=== PATIENT | male | born 1945 | race Caucasian/White ===

== ENCOUNTER 2025-05-27 17:08 | Emergency (ER) | payer OTHER ==
[2025-05-27 17:23] VITALS: BP 180/75; PULSE 70; TEMP 97.2; O2SAT 96
[2025-05-27] MEDS ORDERED: XYLOCAINE VISCOUS 2% 15 ML CUP ONE (17:24)
[2025-05-27] MEDS ORDERED: XYLOCAINE 1% HCL 20 ML MDV ONE (17:30)
--- NOTE | 2025-05-27 17:57 | ERPHSYRPT ---
- History of Present Illness Time Seen by Provider: 05/27/25 17:12 Source: patient Exam Limitations: no limitations Patient Subjective Stated Complaint: pt got bit by his grandsons dog on the lip when it thought that she was going to take her food from her Triage Nursing Assessment: Pt brought to the ER by his , vitals wnl, rates pain as 8/10, pulses normal, skin n/w/d, bit through the lip and ripped skin under the nose, denies any other injuries Physician History: 79-year-old male presents to the emergency room after being bit by his grand child's dog denies any other injury dog does have his rabies shot patient reports his tetanus shot is up-to-date patient now in ED for further eval Timing/Duration: today Severity: mild Associated Symptoms: denies symptoms Allergies/Adverse Reactions: No Known Drug Allergies Allergy (Verified 05/27/25 17:23) Home Medications: Bisoprolol Fumarate/Hctz [Bisoprolol-Hctz 5-6.25 mg Tab] 6.25 mg PO HS 07/11/13 [History] Gabapentin [Neurontin] 600 mg PO TID 07/11/13 [History] Glucosamine Sulfate Dipot Chlr [Glucosamine] 1,000 mg PO BID 07/11/13 [History] Omeprazole 20 MG [Prilosec 20 mg] 20 mg PO HS 07/11/13 [History] Tamsulosin HCl 0.4 mg [Flomax 0.4 MG] 0.4 mg PO HS 07/11/13 [History] lisinopriL [Lisinopril] 40 mg PO HS 07/11/13 [History] Hydrocodone/Acetaminophen [Hydrocodon-Acetaminophn 10-325] 1 each PO Q4HPRN PRN 07/10/14 [History] Hx Influenza Vaccination/Date Given: No Hx Pneumococcal Vaccination/Date Given: No Travel Risk - International Travel Have you traveled outside of the country in past 3 weeks: No - Emerging Infectious Disease Are you exhibiting symptoms associated with any current EIDs: No - Review of Systems Constitutional: No Fever, No Chills Eyes: No Symptoms Ears, Nose, & Throat: No Symptoms Respiratory: No Cough, No Dyspnea Cardiac: No Chest Pain, No Edema, No Syncope Abdominal/Gastrointestinal: No Abdominal Pain, No Nausea, No Vomiting, No Diarrhea Genitourinary Symptoms: No Dysuria Musculoskeletal: No Back Pain, No Neck Pain Skin: No Rash Neurological: No Dizziness, No Focal Weakness, No Sensory Changes Psychological: No Symptoms Endocrine: No Symptoms All Other Systems: Reviewed and Negative - Past Medical History Pertinent Past Medical History: Yes Neurological History: No Pertinent History ENT History: No Pertinent History Cardiac History: Hypertension Respiratory History: Pneumonia Endocrine Medical History: No Pertinent History Musculoskeletal History: No Pertinent History GI Medical History: No Pertinent History History: No Pertinent History Psycho-Social History: No Pertinent History Male Reproductive Disorders: Prostate Problems - Past Surgical History Past Surgical History: Yes Neuro Surgical History: No Pertinent History Cardiac: No Pertinent History Respiratory: No Pertinent History Gastrointestinal: Cholecystectomy Genitourinary: No Pertinent History Musculoskeletal: Other Male Surgical History: No Pertinent History Other Surgical History: BACK SURGERIES - Social History Smoking Status: Current some day smoker How long have you smoked: cigars Exposure to second hand smoke: Yes Drug Use: none - Social Determinants of Health Will the patient participate in the screening: Yes Do you worry about a steady place to live?: No Do you have any problems with any of the following?: No known problems In the past 12 months,have you had to go without utilities?: No Transportation Issues: No Has anyone in your support network made you feel unsafe?: No Have you or anyone in your house had to go w/o enough food: No - Nursing Vital Signs Nursing Vital Signs: Initial Vital Signs Temperature 97.2 F 05/27/25 17:17 Pulse Rate 70 05/27/25 17:17 Blood Pressure 180/75 05/27/25 17:17 O2 Sat by Pulse Oximetry 96 05/27/25 17:17 Pain Scale Pain Intensity 8 - Physical Exam General Appearance: no apparent distress, alert Eye Exam: PERRL/EOMI, eyes nml inspection Ears, Nose, Throat Exam: normal ENT inspection, TMs normal, pharynx normal, moist mucous membranes, other (Facial laceration 2 cm linear) Neck Exam: normal inspection, non-tender, supple, full range of motion Respiratory Exam: normal breath sounds, lungs clear, No respiratory distress Cardiovascular Exam: regular rate/rhythm, normal heart sounds, normal peripheral pulses Gastrointestinal/Abdomen Exam: soft, normal bowel sounds, No tenderness, No mass Back Exam: normal inspection, normal range of motion, No CVA tenderness, No v ertebral tenderness Extremity Exam: normal inspection, normal range of motion, pelvis stable Neurologic Exam: alert, oriented x 3, cooperative, normal mood/affect, nml cerebellar function, nml station & gait, sensation nml, No motor deficits Skin Exam: normal color, warm, dry, No rash Lymphatic Exam: No adenopathy SpO2: 96 Procedures - Laceration/Wound Repair Right Upper Anterior Face Time of Procedure: 17:55 Wound Location: Right, face Wound Length (cm): 2 Wound's Depth, Shape: superficial Wound Explored: clean Irrigated: No Anesthesia: local, 1% Lidocaine Volume Anesthetic (ccs): 5 Wound Debrided: minimal Wound Repaired With: sutures Suture Size/Type: 6-0 Number of Sutures: 2 Sterile Dressing Applied?: Yes Splint Applied?: No Sling Applied?: No Ordered Tests: Medication Summary Discontinued Medications Generic Name Dose Route Start Last Admin Trade Name Joeq PRN Reason Stop Dose Admin Lidocaine HCl Confirm 05/27/25 17:24 Lidocaine Hcl 2% Viscous 15 Ml Udcup Administered 05/27/25 17:25 Dose 30 ml .ROUTE .STK-MED ONE Lidocaine HCl Confirm 05/27/25 17:30 Lidocaine Hcl 1% 20 Ml Mdv 20 Ml Ml Administered 05/27/25 17:31 Dose 3 ml .ROUTE .STK-MED ONE - Progress Progress Note: 05/27/25 17:55 Patient Toller procedure well advised patient to remove the sutures in about 10 days patient has nonabsorbable sutures x 2 - Departure Departure Disposition: Home Clinical Impression: Facial laceration Qualifiers: Encounter type: initial encounter Qualified Code(s): S01.81XA - Laceration without foreign body of other part of head, initial encounter Condition: Stable Critical Care Time: No Referrals: CASEY SMITH MD [ACTIVE STAFF, FAMILY PRACTICE] - Follow up/PCP as directed Instructions: Animal Bites (DC), Stitches - ED discharge instructions, Wound care - ED discharge instructions, Animal and human bites Prescriptions: Amox Tr/Potass Clav. 875 mg [Augmentin 875-125 Tablet] 875 mg PO BID #20 tablet
[2025-05-27] MEDS ORDERED: Augmentin 875-125 Tablet ONE (17:59)
[2025-05-27] MEDS: Augmentin 875-125 Tablet PO ONE (18:00)
== END 2025-05-27 18:09 | disposition home or self-care (01) ==
LOC: ED 17:08
DX: S01.85XA Open bite of other part of head, initial encounter (principal); W54.0XXA Bitten by dog, initial encounter; Y93.K9 Activity, other involving animal care; I10 Essential (primary) hypertension; Z79.899 Other long term (current) drug therapy; Z72.0 Tobacco use